=== PATIENT | female | born 1965 | race Caucasian/White ===

== ENCOUNTER 2017-07-06 15:36 | Observation (INO) ==
--- NOTE | 2017-07-06 15:55 | Emergency Department Note ---
Disposition Clinical Impression: Chest pain Qualifiers: Chest pain type: unspecified Qualified Code(s): R07.9 - Chest pain, unspecified Disposition: Admitted As Inpatient Condition: Good Time of Disposition: 16:52 Chest Pain HPI - General Chief Complaint: ED Chest Pain Stated Complaint: Chest pain Time Seen by Provider: 07/06/17 15:43 Source: EMS Limitations: no limitations Vital Signs Reviewed: Yes Nursing Notes Reviewed: Yes - History of Present Illness HPI Narrative: 51-year-old female with past medical history of hypertension, diabetes, hyperlipidemia, smoking, COPD, possible previous VA, as well as one in her sister at the age of 46. She presents to the emergency department after a two- hour history of having right jaw pain, left arm numbness, feeling like there is a "elephant on her chest". She also describes symptoms of nausea. This episode lasted approximately 30 minutes. Patient took 325 mg of aspirin at that time. EMS brought her in. She was hemodynamically stable. She is placed on 2 L of oxygen as her O2 saturations at 94%. This improved to 96%. Patient's currently not having any active symptoms of chest pain at the moment. Patient denies any previous history of blood clots, denies any pleuritic chest pain, denies calf tenderness, recent travel. Patient does state that she had a recent viral illness with some cough Severity scale (1-10): 0 - Related Data Home Medications Medication Instructions Recorded Confirmed Atenolol [Tenormin] 100 mg PO DAILY 05/12/15 07/06/17 Albuterol Sulfate [Proair Hfa] 2 puff IH Q6H PRN 07/06/17 07/06/17 Citalopram Hydrobromide 40 mg PO DAILY 07/06/17 07/06/17 [Citalopram HBr] Gabapentin [Neurontin] 800 mg PO TID 07/06/17 07/06/17 Oxycodone HCl/Acetaminophen 1 each PO Q6H PRN 07/06/17 07/06/17 [Percocet 10-325 mg Tablet] Triamterene/HCTZ 37.5/25mg 1 each PO DAILY 07/06/17 07/06/17 [Dyazide] clonazePAM [Klonopin] 0.5 mg PO TID PRN 09/26/17 09/26/17 Allergies Allergy/AdvReac Type Severity Reaction Status Date / Time Iodinated Contrast- Oral and Allergy Anaphylaxis Verified 05/12/15 19:48 IV Dye All systems ED: reviewed and negative except as stated. Review of Systems: As Per HPI Constitutional: Denies: fever ENT ED: Denies: throat pain Cardiovascular: Reports: chest pain. Denies: edema, syncope Respiratory: Reports: cough. Denies: dyspnea, wheezes, sputum production Gastrointestinal: Reports: nausea. Denies: abdominal pain, vomiting Musculoskeletal: Denies: back pain, neck pain Neurological: Reports: headache, numbness. Denies: weakness Chest Pain PMH - Past Medical History Medical history: Reports: hypertension Surgical history: Reports: hysterectomy, other Psychiatric history: Reports: anxiety, depression, panic disorder - Social History Smoking Status: Current every day smoker Alcohol use: Reports: none Drug use: Reports: none Physical Exam - General Limitations: no limitations General appearance: alert, in no apparent distress, other (51-year-old female who appears to be in no acute distress.) - Head Head exam: atraumatic, normocephalic - Eye Eye exam: Present: EOMI. Absent: scleral icterus, conjunctival injection - ENT ENT exam: mucous membranes moist - Neck Neck exam: Present: trachea midline. Absent: tenderness, meningismus - Chest Chest inspection: Present: normal inspection, symmetric chest wall rise - Respiratory Respiratory exam: Present: wheezes. Absent: respiratory distress, accessory muscle use - Cardiovascular Cardiovascular exam: Present: regular rate, normal rhythm, normal heart sounds - Abdominal Exam Abdominal exam: Present: soft, Non-Tender. Absent: distention, guarding, rebound - Extremities Exam Extremities exam: Present: normal capillary refill. Absent: pedal edema, calf tenderness - Back Exam Back exam: Present: full ROM - Neurological Exam Neurological exam: Present: alert, oriented X3, CN II-XII intact - Psychiatric Psychiatric exam: Present: normal affect, normal mood - Skin Skin exam: Present: warm, dry, intact, normal color Course Course Narrative: This is a 51-year-old female with a past medical history of hypertension, hyperlipidemia, smoking, COPD, previous VA, with history of mitral infarction and her sibling. She resisted emergency department with chest pressure, right jaw pain, left arm numbness. At this time, this is most concerning for acute coronary syndrome. We are obtaining an EKG, chest x-ray, troponin, CBC, BMP, PT , PTT, INR. The patient is not currently having any active chest pain at this time. She is currently hemodynamically stable. This patient does not seem to be having a pulmonary embolism at this time. However, due to low suspicion, I will obtain a d-dimer. The patient has already received 325 mg of aspirin prior to transport to the emergency department. Vital Signs Temperature 98.2 F 07/06/17 15:39 Pulse Rate 63 07/06/17 15:39 Respiratory Rate 18 07/06/17 15:39 Blood Pressure 146/111 07/06/17 15:39 O2 Sat by Pulse Oximetry 94 07/06/17 15:39 Temperature 98.2 F 07/06/17 15:39 Pulse Rate 63 07/06/17 15:39 Respiratory Rate 18 07/06/17 15:39 Blood Pressure 146/111 07/06/17 15:39 O2 Sat by Pulse Oximetry 94 07/06/17 15:39 Oxygen Delivery Oxygen Delivery Room Air - Reevaluation(s) Reevaluation #1: EKG was negative, chest x-ray was negative. Troponin was negative, d-dimer was within normal limits. Patient is currently a similar manner throughout visit. At this time, I discussed admission for the patient due to all of her risk factors and moderately suspicious history of chest pain today. She agreed to be admitted. I spoke with Dr. Dee the hospitalist, and he agreed to admission. Patient is currently hemodynamically stable at this time and is asymptomatic. Vital Signs Temperature 98.2 F 07/06/17 15:39 Pulse Rate 63 07/06/17 15:39 Respiratory Rate 18 07/06/17 15:39 Blood Pressure 146/111 07/06/17 15:39 O2 Sat by Pulse Oximetry 94 07/06/17 15:39 Temperature 98.2 F 07/06/17 15:39 Pulse Rate 63 07/06/17 15:39 Respiratory Rate 18 07/06/17 15:39 Blood Pressure 146/111 07/06/17 15:39 O2 Sat by Pulse Oximetry 07/06/17 15:39 Oxygen Delivery Oxygen Delivery Room Air Chest X-Ray 07/06/17 15:43 IMPRESSION: Negative portable chest. D/ / Rigo Obrien MD / Rigo Obrien MD Interpreting Provider: Rigo Obrien MD Time: 16:49 Vital Signs Temperature 98.2 F 07/06/17 15:39 Pulse Rate 63 07/06/17 15:39 Respiratory Rate 18 07/06/17 15:39 Blood Pressure 146/111 07/06/17 15:39 O2 Sat by Pulse Oximetry 94 07/06/17 15:39 Temperature 97.8 F 07/06/17 19:19 Pulse Rate 63 07/06/17 19:19 Respiratory Rate 15 07/06/17 19:19 Blood Pressure 122/65 07/06/17 19:19 O2 Sat by Pulse Oximetry 93 07/06/17 19:19 Oxygen Delivery Oxygen Delivery Room Air Chest Pain - Medical Records Medical records reviewed: Yes I reviewed the patient's medical records. - Lab Data Result diagrams: 07/06/17 15:53 07/06/17 15:53 Lab Results 07/06/17 07/06/17 07/06/17 Range/Units 15:53 15:53 15:53 WBC 7.7 (4.3-11.1) K/mcL RBC 5.10 H (3.82-4.97) M/mcL Hgb 15.4 (11.5-15.4) g/dL Hct 46.7 H (35.3-44.9) % MCV 91.6 (83.0-100.0) fL MCH 30.2 (28.0-33.3) pg MCHC 33.0 (31.6-35.5) g/dL RDW 11.6 (11.5-14.5) % Plt Count 290 (140-400) K/mcL MPV 8.6 L (9.4-12.4) fL Immature Gran % 0.3 (0-4) % Seg Neutrophils % 51.9 % Lymphocytes % 39.2 % Monocytes % 6.6 % Eosinophils % 1.6 % Basophils % 0.4 % Neutrophils # 4.0 (1.6-8.9) K/mcL Lymphocytes # 3.0 (0.6-4.6) K/mcL Monocytes # 0.5 (0.0-1.3) K/mcL Eosinophils # 0.1 (0.0-0.6) K/mcL Basophils # 0.0 (0.0-0.2) K/mcL PT 11.6 (9.4-12.1) Seconds INR 1.1 APTT 32.7 (26.0-36.0) Seconds D-Dimer 397 (0-500) ng/mLFEU Sodium (136-145) mEq/L Potassium (3.5-4.5) mEq/L Chloride (98-109) mEq/L Carbon Dioxide (19-29) mEq/L BUN (7-20) mg/dL Creatinine (0.57-1.11) mg/dL Est GFR ( Amer) (> 60) Est GFR (Non-Af Amer) (> 60) BUN/Creatinine Ratio (6-26) Glucose (70-99) mg/dL Calculated Osmolality (280-300) Calcium (8.6-10.8) mg/dL Troponin I (0-0.03) ng/mL B-Natriuretic Peptide 22 (0-100) pg/mL Urine Color (Yellow) Urine Clarity (Clear) Urine pH (5.0-8.0) pH Units Ur Specific [place] (1.010-1.025) Urine Protein (Neg-Trace) mg/dL Urine Glucose (UA) (Normal) mg/dL Urine Ketones (Negative) mg/dL Urine Blood (Negative) Urine Nitrite (Negative) Urine Bilirubin (Negative) Urine Urobilinogen (Normal) mg/dL Ur Leukocyte Esterase (Negative) Ur Culture Indicated? (NO) 07/06/17 07/06/17 07/06/17 Range/Units 15:53 15:53 16:04 WBC (4.3-11.1) K/mcL RBC (3.82-4.97) M/mcL Hgb (11.5-15.4) g/dL Hct (35.3-44.9) % MCV (83.0-100.0) fL MCH (28.0-33.3) pg MCHC (31.6-35.5) g/dL RDW (11.5-14.5) % Plt Count (140-400) K/mcL MPV (9.4-12.4) fL Immature Gran % (0-4) % Seg Neutrophils % % Lymphocytes % % Monocytes % % Eosinophils % % Basophils % % Neutrophils # (1.6-8.9) K/mcL Lymphocytes # (0.6-4.6) K/mcL Monocytes # (0.0-1.3) K/mcL Eosinophils # (0.0-0.6) K/mcL Basophils # (0.0-0.2) K/mcL PT (9.4-12.1) Seconds INR APTT (26.0-36.0) Seconds D-Dimer (0-500) ng/mLFEU Sodium 139 (136-145) mEq/L Potassium 4.2 (3.5-4.5) mEq/L Chloride 105 (98-109) mEq/L Carbon Dioxide 25 (19-29) mEq/L BUN 10 (7-20) mg/dL Creatinine 0.81 (0.57-1.11) mg/dL Est GFR ( Amer) > 60 (> 60) Est GFR (Non-Af Amer) > 60 (> 60) BUN/Creatinine Ratio 12 (6-26) Glucose 82 (70-99) mg/dL Calculated Osmolality 286 (280-300) Calcium 9.5 (8.6-10.8) mg/dL Troponin I 0.00 (0-0.03) ng/mL B-Natriuretic Peptide (0-100) pg/mL Urine Color Yellow (Yellow) Urine Clarity Clear (Clear) Urine pH 7.5 (5.0-8.0) pH Units Ur Specific [place] 1.014 (1.010-1.025) Urine Protein Negative (Neg-Trace) mg/dL Urine Glucose (UA) Normal (Normal) mg/dL Urine Ketones Negative (Negative) mg/dL Urine Blood Negative (Negative) Urine Nitrite Negative (Negative) Urine Bilirubin Negative (Negative) Urine Urobilinogen Normal (Normal) mg/dL Ur Leukocyte Esterase Negative (Negative) Ur Culture Indicated? NO (NO) - EKG Data EKG attestation: Yes I reviewed and interpreted this EKG. EKG results narrative: 15:46 Ventricular rate 60 bpm, GA interval 194 ms, QRS duration 170 ms, QT 451 ms, QTC 453 ms, normal axis. Sinus rhythm with a ventricular rate of 60 bpm. There are no ischemic ST changes noted on this EKG compared to a previous one performed on Mar 03 2006. Attestation Statement - Attestation Attestation: I, Pritesh Woods, examined this patient and my medical decision-making was reviewed with the [employer]/PA/Advanced Practice Nurse/Resident Physician. I agree with the documented findings, disposition and treatment plan as described except to the extent set forth below. 51-year-old female presents to emergency Department with concerns of chest pain. Patient states it is like a pressure on her chest that radiates to her right jaw and her left arm. No history of VA in the past. Initial EKG showed normal sinus rhythm with rate of 60 without evidence of STEMI. Initial troponin negative. Patient has multiple risk factors for coronary artery disease. She patient will be admitted to the hospital for further care and observation.
[2017-07-06 15:59] LABS: Hematocrit 46.7 % (35.3-44.9); Hemoglobin 15.4 g/dL (11.5-15.4); Mean Corpuscular Hemoglobin 30.2 pg (28.0-33.3); Mean Corpuscular Volume 91.6 fL (83.0-100.0)
[2017-07-06 16:00] LABS: Basophils % 0.4 %; Eosinophils # 0.1 K/mcL (0.0-0.6); Eosinophils % 1.6 %; Immature Granulocytes % 0.3 % (0-4); Lymphocytes % 39.2 %; Mean Platelet Volume 8.6 fL (9.4-12.4); Monocytes # 0.5 K/mcL (0.0-1.3); Monocytes % 6.6 %; Platelet Count 290 K/mcL (140-400); Red Cell Distribution Width 11.6 % (11.5-14.5); Segmented Neutrophils % 51.9 %
[2017-07-06 16:11] LABS: INR 1.1; Prothrombin Time 11.6 Seconds (9.4-12.1)
[2017-07-06 16:12] LABS: BUN/Creatinine Ratio 12 (6-26); Blood Urea Nitrogen 10 mg/dL (7-20); Calcium 9.5 mg/dL (8.6-10.8); Carbon Dioxide 25 mEq/L (19-29); Chloride 105 mEq/L (98-109); Glucose 82 mg/dL (70-99); Osmolality,Calculated 286 (280-300); Potassium 4.2 mEq/L (3.5-4.5); Sodium 139 mEq/L (136-145); eGFR For African Americans > 60 (> 60); eGFR For Non-African Americans > 60 (> 60)
[2017-07-06 16:13] LABS: Activated Partial Thrombo Time 32.7 Seconds (26.0-36.0)
[2017-07-06 16:21] LABS: Bilirubin,Urine Negative (Negative); Blood,Urine Negative (Negative); Clarity,Urine Clear (Clear); Color,Urine Yellow (Yellow); Glucose,Urine (UA) Normal (Normal); Ketones,Urine Negative (Negative); Leukocyte Esterase,Urine Negative (Negative); Nitrite,Urine Negative (Negative); PH,Urine 7.5 pH Units (5.0-8.0); Protein,Urine Negative (Neg-Trace); Specific Gravity,Urine 1.014 (1.010-1.025); Urobilinogen,Urine Normal (Normal)
[2017-07-06] MEDS ORDERED: Ondansetron 4 MG/2 ML VIAL IVP PRN (19:46)
[2017-07-06] MEDS ORDERED: Naloxone 0.4 MG/ML INJ IVP PRN (19:46)
[2017-07-06] MEDS ORDERED: Acetaminophen 325 MG TABLET PO PRN (19:46)
[2017-07-06] MEDS ORDERED: clonazePAM 0.5 MG TABLET PO PRN (19:51)
[2017-07-06] MEDS ORDERED: Benzonatate 100 MG CAPSULE PO PRN (19:52)
[2017-07-06] MEDS ORDERED: *HR* Enoxaparin 40 MG/0.4 ML SYRINGE SQ ONE (20:12)
[2017-07-06] MEDS: Gabapentin 400 MG CAPSULE PO SCH (20:39)
[2017-07-06] MEDS: Nicotine 21 MG PATCH.TD24 TD SCH (20:39)
[2017-07-06] MEDS: *HR* OxyCODONE/APAP 10/325 TABLET PO PRN (20:39)
[2017-07-06] MEDS: Pantoprazole 40 MG VIAL IVP SCH (20:43)
[2017-07-06] MEDS ORDERED: *HR* Enoxaparin 100 MG/ML SYRINGE SQ ONE (20:45)
--- NOTE | 2017-07-06 21:14 | Internal Med History&Physical ---
Date of Encounter: 07/06/17 Time of Encounter: 19:00 Assessment and Plan (1) Chest pain Current visit: Yes Status: Acute Patient presents with acute chest pain that she describes as centralized in her chest and radiating to her left jaw and shoulder since yesterday. Patient denies any previous cardiac history or symptoms but reports that she had a previous stress test that was >5 years ago. Patient has significant risk factors with HTN, HLD, and tobacco abuse (1.5 -2 PPD) as well as familial risk factors of CVA, CT, HTN, DM, and HLD. Initial troponin 0.00 and will trend 2x more. Patient placed on continuous cardiac telemetry. Nitroglycerin SL ordered PRN. Echocardiogram ordered. Cardiology consult ordered and will follow their recommendations on possible stress test based on echocardiogram results. Qualifiers: Chest pain type: other chest pain Qualified Code(s): R07.89 - Other chest pain; R07.8 - Other chest pain (2) Cough Current visit: Yes Status: Acute Patient presents with acute and productive cough over the past several days which is most likely related to her current tobacco abuse and possible COPD. She reports sputum is white. Patient placed on supplemental O2 with titration if SPO2 less than 92% and continuous SPO2 monitoring. DuoNeb's ordered every 6 scheduled. Tessalon 100 mg PO TID. (3) Nausea Current visit: Yes Status: Acute Patient presents with acute nausea related to her chest pain. IVP Zofran Q6 PRN and IVP Protonix 40 mg daily ordered. (4) Tobacco abuse counseling Current visit: Yes Status: Acute Patient counseled >10 minutes regarding the health risks and dangers of tobacco abuse on her current health status, risk factors, and familial risk factors as well as the benefits of quitting and successful methods. Patient expressed interest in quitting and requested nicotine patch while inpatient. (5) HLD (hyperlipidemia) Current visit: Yes Status: Chronic Patient presents with history of chronic HLD but does not currently take a statin medication. Lipid panel ordered in a.m. labs and will consider adding Lipitor to medications based on lipid panel results. Qualifiers: Hyperlipidemia type: pure hypercholesterolemia Qualified Code(s): E78.00 - Pure hypercholesterolemia, unspecified; E78.0 - Pure hypercholesterolemia (6) HTN (hypertension) Current visit: Yes Status: Chronic Patient presents with history of chronic hypertension. Will monitor patient and vital signs and continue patient's atenolol and Dyazide. Qualifiers: Hypertension type: essential hypertension Qualified Code(s): I10 - Essential (primary) hypertension (7) Tobacco abuse Current visit: Yes Status: Chronic Patient presents with history of chronic tobacco abuse and reports smoking 1.5 to 2 PPD. Patient counseled on the dangers of tobacco and expressed a desire to quit. 21 mg nicotine patch ordered daily. (8) DVT prophylaxis Current visit: Yes Status: Acute Patient to receive 90 mg Lovenox SQ ONCE for DVT prophylaxis. Internal Medicine - H&P: HPI Chief complaint: Chest pain Admitted From: Emergency Dept Plans for Post Hospital Care: Home History of present illness: Mrs. Beckwith is a 51 year old female with medical history of hypertension and hyperlipidemia who presents from the ED with chief complaint of centralized chest pressure that she reports began yesterday and radiated to her left jaw and shoulder. Patient denies any previous cardiac history or symptoms but reports that she had a previous stress test that was >5 years ago. Patient has significant risk factors with HTN, HLD, and tobacco abuse (1.5 -2 PPD) as well as familial risk factors of CVA, CT, HTN, DM, and HLD. Patient reports chest pain, numbness and tingling of the left arm and jaw, cough, shortness of breath , nausea, and headache. She denies recent illness, fever, chills, abdominal pain , vomiting, diarrhea, constipation, weakness, dizziness, lightheadedness, changes in vision, pre-syncope, or syncope. On admission, patient's vitals were temperature of 98.2F, heart rate of 63 bpm, respiratory rate of 18, BP of 146/ 111, and SPO2 of 94% on room air. Abnormal pertinent labs include HCT of 46.7. Initial troponin 0.00. UA was not indicative for culture. 1-View CXR of the chest today shows cardiac and mediastinal contours are within normal limits. Lungs are clear without evidence of pleural effusion or pneumothorax. Upon assessment, patient is alert and oriented 3 and states she is not currently experiencing chest pain. Heart rate is RRR and patient has diminished lung sounds bilaterally and has productive cough on auscultation. Patient is hemodynamically stable and reports no acute distress. Information taken from patient, family, chart review, and previous medical records. Mrs. Beckwith is at high risk for further morbidity based on current symptoms, risk factors, familial risk factors, and history and will be placed as observation status. Time spent with patient and family >40 minutes. Past Med Surg Social Fam HX - Past Medical History Source: patient, old records reviewed, obtained from family Medical history: hyperlipidemia, hypertension Psychiatric history: anxiety, depression, panic disorder - Past Surgical History Surgical History: hysterectomy, orthopedic, other (Right knee, back surgery, neck surgery), other (Tonsillectomy and adenoidectomy) - Social History Smoking Status: Current every day smoker Packs per day: 1.5 - 2 PPD Smokeless Tobacco Status: No Alcohol use: none Drug use: none Current living situation: Home, With Family Activity Level: Independent ambulation Recent Out of Country Travel Within the Last 8 Weeks: No Exposure or Possible Exposure to Illness During Travel: No - Family History Father Race: Family Member Ethnicity: Non- Living Status: Age at : 78 Cause of : Renal failure Hx Family Cardiac Disorders: Yes (HLD, HTN, CVA) Hx Family Cancer: Yes (Prostate) Hx Family Genitourinary Disorders: Yes (CKD) Hx Family Endocrine Disorder: Yes (DM) Mother Race: Family Member Ethnicity: Non- Age at : 81 Cause of : CT Hx Family Cardiac Disorders: Yes (HLD, HTN, CT) Hx Family Endocrine Disorder: Yes (DM) Sister Race: Family Member Ethnicity: Non- Living Status: Still Living Hx Family Cardiac Disorders: Yes (CT) Hx Family Endocrine Disorder: Yes (DM) Internal Medicine - H&P: Meds Atenolol [Tenormin] 100 mg PO DAILY 05/12/15 [History] Albuterol Sulfate [Proair Hfa] 2 puff IH Q6H PRN 07/06/17 [History] Citalopram Hydrobromide [Citalopram HBr] 40 mg PO DAILY 07/06/17 [History] Gabapentin [Neurontin] 800 mg PO TID 07/06/17 [History] Oxycodone HCl/Acetaminophen [Percocet 10-325 mg Tablet] 1 each PO Q6H PRN [History] Triamterene/HCTZ 37.5/25mg [Dyazide] 1 each PO DAILY 07/06/17 [History] clonazePAM [Klonopin] 0.5 mg PO TID PRN 07/06/17 [History] 3 Allergy/AdvReac Type Severity Reaction Status Date / Time Iodinated Contrast- Oral and Allergy Anaphylaxis Verified 05/12/15 19:48 IV Dye All Systems PM: A 10-system review of systems was performed and is negative for pertinent findings except as documented above in the HPI. - Constitutional Constitutional: no chills, no fever(s), no night sweats - EENT Eyes: no change in vision, no discharge, no pain, no photophobia Ears: no ear discharge, no ear pain, no tinnitus Nose, mouth and throat: no dysphagia, no nasal discharge, no neck pain, no sore throat - Breasts Breasts: as per HPI - Cardiovascular Cardiovascular ROS IM: as per HPI, chest pain, dyspnea, dyspnea on exertion - Respiratory Respiratory: as per HPI, cough, dyspnea, dyspnea on exertion, pain with cough - Gastrointestinal Gastrointestinal: no abdominal pain, no diarrhea, no hematemesis, no hematochezia, no melena, no nausea, no vomiting - Genitourinary Genitourinary: no change in urinary stream, no dysuria, no flank pain, no hematuria Menstruation: as per HPI, post hysterectomy - Musculoskeletal Musculoskeletal ROS IM: as per HPI, numbness, tingling (Left jaw, arm, and shoulder) - Integumentary Integumentary IM: no rash, no unusual bruising - Neurological Neurological ROS: no confusion, no convulsions, no focal weakness, no numbness, no tingling, no tremor(s) - Psychiatric Psychiatric: as per HPI - Endocrine Endocrine IM: as per HPI - Hematologic/Lymphatic Hematologic/Lymphatic: no easy bruising - Allergic/Immunologic Allergic/Immunologic: as per HPI - Constitutional Vitals: Temp Pulse Resp BP Pulse Ox 97.8 F 63 15 122/65 93 07/06/17 19:19 07/06/17 19:19 07/06/17 19:19 07/06/17 19:19 07/06/17 19:19 General appearance: Present: cooperative, A&O X 3, pleasant, no acute distress, obese, answers questions appropriately - Head Head exam: Present: atraumatic, normocephalic - Eye Eye exam: Present: PERRL, conjuntiva pink, sclera anicteric Pupils: Present: PERRL - ENT ENT exam: Present: normal exam, normal external ear exam - Neck Neck exam general surgery: Present: normal inspection, supple, trachea midline. Absent: lymphadenopathy - Respiratory Respiratory exam: Present: decreased breath sounds. Absent: accessory muscle use, rales, rhonchi, wheezes - Cardiovascular Cardiovascular exam: Present: RRR, +S1, +S2. Absent: diastolic murmur, gallop, rubs, systolic murmur - GI/Abdominal GI/Abdominal exam: Present: normal bowel sounds, soft, no peritoneal signs. Absent: distended, tenderness - Rectal Rectal exam: Present: deferred - Additional comments: exam deferred. - Extremities Exam Extremities exam: Present: warm, radial pulses palpable and symmetrical. Absent : calf tenderness, cyanotic, pedal edema - Back Exam Back exam: Present: normal inspection - Neurological Exam Neurological exam: Present: CN II-XII intact, oriented X3, no focal deficits. Absent: pronater drift, facial droop, speech deficit - Psychiatric Psychiatric exam: Present: normal affect, normal mood - Skin Skin exam: Present: dry, intact Internal Med - H&P Results - Labs CBC & Chem 7: 07/06/17 15:53 07/06/17 15:53 - EKG Data EKG shows normal: sinus rhythm - EKG Data Prior EKG available for review: yes When compared to previous EKG: there is no significant change EKG comments: 07/06/17 21:30 EKG dated 03/03/06 shows sinus rhythm. EKG dated 07/06/17 shows sinus rhythm with moderate intraventricular conduction delay. - Diagnostic Studies Chest x-ray Additional comments: Impressions Chest X-Ray 07/06/17 15:43 IMPRESSION: Negative portable chest. D/ / Rigo Obrien MD / Rigo Obrien MD Interpreting Provider: Rigo Obrien MD
--- NOTE | 2017-07-06 21:18 | Event Note ---
Date of Encounter: 07/06/17 Time of Encounter: 21:16 Patient seen and examined with nurse practitioner. Agree with this assessment and plan. Patient with significant risk factors for coronary artery disease including age, 51 pack your smoking history, hypertension, positive family history of premature coronary artery disease presents with Hay[place] left arm pain. Electrocardiogram shows no ST segment shifts. Initial troponin normal. I will give the patient one dose of full-dose Lovenox because of typicality of pain. Cardiology evaluation in the morning.
[2017-07-06] MEDS: Ipratropium/Albuterol Neb 3 ML IH SCH (21:34)
[2017-07-06] MEDS ORDERED: Nitroglycerin 0.4 MG TAB.SUBL SL PRN (21:50)
[2017-07-06] MEDS ORDERED: *HR* Heparin 5,000 UNIT/ML VIAL SQ SCH (22:00)
[2017-07-07] MEDS: Ipratropium/Albuterol Neb 3 ML IH SCH ×3 (03:33→16:10)
[2017-07-07 04:27] LABS: Basophils # 0.1 K/mcL (0.0-0.2); Basophils % 0.7 %; Eosinophils # 0.2 K/mcL (0.0-0.6); Eosinophils % 2.8 %; Hematocrit 44.2 % (35.3-44.9); Hemoglobin 14.5 g/dL (11.5-15.4); Immature Granulocytes % 0.3 % (0-4); Lymphocytes # 3.3 K/mcL (0.6-4.6); Lymphocytes % 45.2 %; Mean Corpuscular HGB Conc 32.8 g/dL (31.6-35.5); Mean Corpuscular Hemoglobin 30.1 pg (28.0-33.3); Mean Corpuscular Volume 91.9 fL (83.0-100.0); Mean Platelet Volume 8.8 fL (9.4-12.4); Monocytes # 0.6 K/mcL (0.0-1.3); Monocytes % 7.6 %; Neutrophils # 3.2 K/mcL (1.6-8.9); Platelet Count 250 K/mcL (140-400); Red Blood Count 4.81 M/mcL (3.82-4.97); Red Cell Distribution Width 11.8 % (11.5-14.5); Segmented Neutrophils % 43.4 %
[2017-07-07 04:38] LABS: Hemoglobin A1C 4.9 %
[2017-07-07 04:42] LABS: INR 1.1; Prothrombin Time 12.1 Seconds (9.4-12.1)
[2017-07-07 04:45] LABS: Activated Partial Thrombo Time 37.5 Seconds (26.0-36.0)
[2017-07-07 04:46] LABS: Alanine Aminotransferase 9 Units/L (0-55); Albumin 3.3 g/dL (3.5-5.0); Alkaline Phosphatase 61 Units/L (38-126); Aspartate Amino Transferase 9 Units/L (5-34); BUN/Creatinine Ratio 20 (6-26); Bilirubin,Total 0.3 mg/dL (0.2-1.2); Blood Urea Nitrogen 16 mg/dL (7-20); Calcium 9.3 mg/dL (8.6-10.8); Carbon Dioxide 24 mEq/L (19-29); Chloride 105 mEq/L (98-109); Chol/HDL Ratio 6.9 (0-4.9); Cholesterol 256 mg/dL (< 200); Globulin 3.2 g/dL (2.4-3.5); Glucose 92 mg/dL (70-99); HDL Cholesterol 37 mg/dL (40-59); LDL Cholesterol,Calculated 157 mg/dL (0-99); Magnesium 2.2 mg/dL (1.6-2.6); Osmolality,Calculated 285 (280-300); Potassium 4.1 mEq/L (3.5-4.5); Sodium 137 mEq/L (136-145); Total Protein 6.5 g/dL (6.0-8.3); Triglycerides 312 mg/dL (< 150); eGFR For African Americans > 60 (> 60); eGFR For Non-African Americans > 60 (> 60)
[2017-07-07] MEDS: Aspirin Enteric Coated 81 MG Tablet PO SCH ×2 (04:56→13:13)
[2017-07-07] MEDS: *HR* OxyCODONE/APAP 10/325 TABLET PO PRN ×2 (09:12→15:10)
[2017-07-07] MEDS ORDERED: Regadenoson 0.4 MG/5 ML SYRINGE IVP ONE (09:31)
[2017-07-07] MEDS: Nicotine 21 MG PATCH.TD24 TD SCH (13:12)
--- NOTE | 2017-07-07 13:24 | Nuclear Medicine Stress Report ---
Regadenoson Nuclear Stress Name: Kymberly Beckwith Date of Study: 07/07/2017 Date: 1965 Ht: Medical Record#: [id number] Age: 51 Wt: Gender: Female Order #: [id number] Location: [facility] Room: [facility] Supervising Provider: Philippe Husain CNP Reading Physician: Ana Davila DO Ordering Physician: Moriah Flynn CNP Stress Technologist: Estevan Smith, [employer], [facility] Representative Government Relations: Aleja Jordan Indications: Chest Pain Impression: Perfusion imaging was negative for ischemia or infarct. Pharmacologic ECG was negative for ischemia at the level of heart rate achieved. Gated EF = 58%. History: Hypertension Hypercholesteremia History of Smoking Stress Test Summary: Stress Test Type: Pharmacologic Regadenoson 0.4mg/5ml given IV Baseline Information: Initial Heart Rate: 65 Blood Pressure: 148/92 Stress Information: Stress Time: 4 min 00 sec Test Terminated Due to (primary): As per protocol Maximum Blood Pressure: 128/82 Maximum Heart Rate: 84 Percent Maximum Heart Rate Achieved: 49 Double Product: 82329 METS Reached: 1 Symptoms: Shortness of breath, Nausea Nuclear Summary: SPECT myocardial perfusion imaging using Tc99m Sestamibi given intravenously was performed at rest and following cardiac stress testing. The resting images were obtained following initial dose of 9.8 mCi. Following stress an additional dose of 34.2 mCi was given at peak exercise or 30 seconds post regadenoson infusion. Medication Given: Time Medication Dose Units Route Findings: Stress Note * Resting ECG demonstrated normal sinus rhythm. * Pharmacologic stress ECG is negative for ischemia at level of heart rate achieved. * No arrhythmias were noted during stress. * Patient had no chest pain during stress. Hemodynamic responses * Normal hemodynamic responses to pharmacologic stress. Study Quality * Study quality is good. Gated EF % * Gated EF = 58%. Left Ventricle * The left ventricle is not dilated. NORMALS * Normal wall motion. * Normal segmental perfusion in stress. * Normal Segmental Perfusion in rest. TID * No evidence of transient ischemic dilatation. Lung Uptake * There is no evidence of increase lung uptake. Updated by Ana Dvaila on 07/07/2017 1:16:36 PM electronically signed on 07/07/2017 1:17:11 PM with status of Final
[2017-07-07] MEDS: Pantoprazole 40 MG VIAL IVP SCH (14:42)
[2017-07-07] MEDS: Gabapentin 400 MG CAPSULE PO SCH ×2 (15:11)
[2017-07-07 15:26] VITALS: BP 134/88
--- NOTE | 2017-07-07 16:41 | Discharge Summary ---
Date of Encounter: 07/07/17 Time of Encounter: 08:40 - Discharge Diagnosis (1) Chest pain Priority: Primary Status: Acute Comments: Patient denies chest pain today. Stress test was negative with a gated EF is 58 %. Echo with an LVEF of 50-55% with normal LV systolic function, no significant valvular dysfunction, normal wall motion. Qualifiers: Chest pain type: other chest pain Qualified Code(s): R07.89 - Other chest pain; R07.8 - Other chest pain (2) HLD (hyperlipidemia) Priority: Secondary Status: Chronic Comments: Chronic. Continue home medications. Qualifiers: Hyperlipidemia type: pure hypercholesterolemia Qualified Code(s): E78.00 - Pure hypercholesterolemia, unspecified; E78.0 - Pure hypercholesterolemia (3) HTN (hypertension) Priority: Secondary Status: Chronic Comments: Well-controlled in the inpatient setting. Continue home medications. Qualifiers: Hypertension type: essential hypertension Qualified Code(s): I10 - Essential (primary) hypertension (4) Tobacco abuse Priority: Secondary Status: Chronic Comments: Patient currently smokes 1/2-2 packs per day. She will be given patches for home. Cannot do Wellbutrin or Chantix due to currently being on Celexa. (5) DVT prophylaxis Priority: Secondary Status: Acute Comments: Patient received a one-time dose of Lovenox 90 mg due to risk for ACS with multiple risk factors. - Discharge Medications Prescriptions: Nicotine Patch [Nicoderm] 21 mg TD DAILY #28 patch.td24 Simvastatin [Zocor] 20 mg PO HS #30 tablet Home Medications: Atenolol [Tenormin] 100 mg PO DAILY 05/12/15 [History] Albuterol Sulfate [Proair Hfa] 2 puff IH Q6H PRN 07/06/17 [History] Citalopram Hydrobromide [Citalopram HBr] 40 mg PO DAILY 07/06/17 [History] Gabapentin [Neurontin] 800 mg PO TID 07/06/17 [History] Oxycodone HCl/Acetaminophen [Percocet 10-325 mg Tablet] 1 each PO Q6H PRN [History] Triamterene/HCTZ 37.5/25mg [Dyazide] 1 each PO DAILY 07/06/17 [History] clonazePAM [Klonopin] 0.5 mg PO TID PRN 07/06/17 [History] Nicotine Patch [Nicoderm] 21 mg TD DAILY #28 patch.td24 07/07/17 [Rx] Simvastatin [Zocor] 20 mg PO HS #30 tablet 07/07/17 [Rx] Allergies/Adverse Reactions: 3 Allergy/AdvReac Type Severity Reaction Status Date / Time Iodinated Contrast- Oral and Allergy Anaphylaxis Verified 05/12/15 19:48 IV Dye Procedures/tests Complete & Pending: Procedures Performed prior 72 hours Category Date Time Status NM elvis perf SPECT multi [NM] Routine Exams 07/07/17 08:07 Taken EV echocardiogram Routine Y 07/07/17 19:51 Completed SP pharm nuclear stress Routine Y 07/07/17 08:07 Completed Date of admission: 07/06/17 17:23 Primary care physician: Jonatan Hopson Jr, MD Discharging clinician: Moriah Flynn Anticipated date of discharge: 07/07/17 - Patient Status Disposition: Home, Self-Care Condition: Good Functional capacity at discharge: independent ambulation Overall status at discharge: patient is back to baseline - Discharge Instructions Follow Up With: Jonatan Hopson Jr, MD [Primary Care Provider] - 07/12/17 3:00 pm Additional Instructions: Follow up with her primary care provider in 7-10 days for a follow-up visit. Please consider smoking cessation, use patches. Resume your normal home medications and her activities as tolerated. Return to the emergency department immediately if your symptoms worsen or return , or for any other problems or concerns. - Diet and Activity Activity: increase activity as tolerated Diet: advance to your usual diet Hospital course: Ms. Beckwith is a 51 year old female with past medical history of anxiety, tobacco abuse, hypertension, hyperlipidemia. Patient presented to the emergency department with complaint of substernal chest heaviness with radiation to left on left arm while sitting talking to her sister. She has no cardiac history and no family history she has never had pain like this before. She reported shortness of breath and nausea. Pain lasted about 15 minutes and resolved by the time EMS arrived at her house. She is not had any of this since, including when arriving to the emergency department. She denies diaphoresis because when the chest pain started she got in the shower. Her physical exam is unremarkable. Troponins were negative, chest x-ray was negative, echocardiogram with an LVEF of 50-55% with low normal LV systolic function no significant dysfunction, and normal wall segment motion. Stress test was negative for ischemia or infarct. The gated EF of 58%. Chest pain was not reproducible, patient reports that she has been under a lot of stress recently. She denies any change in routine. Pain is most likely not musculoskeletal since it is not reproducible and she denies change in her routine. This could be related to anxiety. She does take Celexa and Klonopin. Smoking cessation was discussed but the admitting provider, as well as with me. She states she is interested in stopping. Due to the fact that she is already on Celexa and Klonopin, I will not give her Wellbutrin or Chantix. I have sent home with prescription for nicotine patches. She will need to follow- up with primary care for refills and declining dosages. Labs are stable and within normal limits, other than lipid panel which is slightly elevated. Patient will be sent home with prescription for simvastatin. Vital signs are stable. Patient is ready for discharge. Time spent discussing smoking cessation with patient: 3 to 10 minutes - Time Spent with Patient Total time spent providing and/or coordinating discharge services: Less than 30 minutes - Constitutional Vitals: Temp Pulse Resp BP Pulse Ox 98.2 F 59 17 134/88 93 07/07/17 07:15 07/07/17 15:25 07/07/17 15:25 07/07/17 15:25 07/07/17 15:25 General appearance: Present: cooperative, A&O X 3, pleasant, no acute distress, obese, answers questions appropriately - Head Head exam: Present: atraumatic, normal inspection, normocephalic - Eye Eye exam: Present: conjuntiva pink, sclera anicteric - Neck Neck exam general surgery: Present: supple, trachea midline. Absent: lymphadenopathy, tenderness - Respiratory Respiratory exam: Present: CTAB. Absent: accessory muscle use, rales, rhonchi, wheezes - Cardiovascular Cardiovascular exam: Present: RRR, +S1, +S2. Absent: diastolic murmur, gallop, rubs, systolic murmur - GI/Abdominal GI/Abdominal exam: Present: normal bowel sounds, soft, no peritoneal signs. Absent: distended, hepatomegaly, tenderness - Extremities Exam Extremities exam: Present: normal capillary refill, normal inspection, warm, radial pulses palpable and symmetrical. Absent: calf tenderness, cyanotic, pedal edema - Neurological Exam Neurological exam: Present: alert, oriented X3, no focal deficits. Absent: facial droop, speech deficit - Skin Skin exam: Present: dry, intact, normal color, warm. Absent: rash
--- NOTE | 2017-07-07 18:39 | Electrocardiograph Report ---
[address] [address] Test Date: 2017-07-06 Pat Name: Kymberly Beckwith Department: 102 Room: 3B Gender: F [employer] Work[employer]: Milind : 1965 Requested By: Ovidio Aguila Order Number: [id number] Reading MD: Brandon Santamaria MD Measurements Intervals [place] Rate: 60 P: 42 AK: 194 QRS: 48 QRSD: 117 T: 34 QT: 451 QTc: 453 Interpretive Statements SINUS RHYTHM Electronically Signed On 07-07-2017 18:37:26 EDT by Brandon Santamaria MD
== END 2017-07-07 17:12 | disposition home or self-care (01) ==
LOC: EMEROO 15:36 → 3BNU 15:36
PROVIDERS: ADMIT Family Medicine; ATTEND Registered Nurse